=== PATIENT | female | born 1980 ===

== ENCOUNTER 2021-08-27 08:42 | Emergency (ER) | payer OTHER ==
[~2021-08-27] VITALS: Ht 149.9 cm; Wt 86.2 kg
[2021-08-27] MEDS ORDERED: FLUTICASONE PRO16 GM (10:25)
[2021-08-27] MEDS ORDERED: EUTHYROX150 MC1 (10:25)
[2021-08-27] MEDS ORDERED: ZOLOFT100 M8 (10:25)
[2021-08-27] MEDS ORDERED: Lisinopril2.5 MG (10:25)
[2021-08-27] MEDS ORDERED: MONDOXYNE NL100 MG PO (11:03)
[2021-08-27] MEDS ORDERED: Norco 5-325 Ta1 EACH PO (11:03)
== END 2021-08-27 11:14 | disposition home or self-care (01) ==
LOC: ER 08:42
DX: L02.31 Cutaneous abscess of buttock (principal); Z88.2 Allergy status to sulfonamides
CPT/HCPCS: 10060; 99282-25

== ENCOUNTER → 2024-04-10 | Outpatient (CLI) | payer OTHER ==
[~2024-04-10] MED LIST: EUTHYROX150 MC1; FLUTICASONE PRO16 GM; Lisinopril2.5 MG; MONDOXYNE NL100 MG PO; Norco 5-325 Ta1 EACH PO; Purinethol50 MG; ZOLOFT100 M8
[2024-04-14 15:50] LABS: HPV HIGH RISK BY TMA Not Detected; HPV SOURCE Cervical
== END ==
LOC: LAB SHORT 11:29 → LAB 11:29
PROVIDERS: Obstetrics & Gynecology
DX: Z01.419 Encounter for gynecological examination (general) (routine) without abnormal findings (principal)
CPT/HCPCS: 87624; G0123

== ENCOUNTER → 2024-05-01 | Outpatient (CLI) | payer OTHER | LOC: LAB SHORT 13:20 → LAB 13:20 | DX: N92.1 Excessive and frequent menstruation with irregular cycle (principal) | CPT/HCPCS: 88305 ==

== ENCOUNTER 2024-07-05 10:00 | Day surgery (SDC) | payer OTHER ==
[~2024-07-05] VITALS: Ht 149.9 cm; Wt 80.7 kg
[2024-07-05] MEDS ORDERED: Lactated Ringer's 1,000 ML IV ONE (10:48)
[2024-07-05] MEDS ORDERED: Ketorolac Tromethamine 30mg Vial ONE (12:33)
[2024-07-05] MEDS ORDERED: Ondansetron HCl 2 MG / ML 2ML Vial ONE (12:33)
[2024-07-05] MEDS ORDERED: propofoL 20 ML IV ONE (12:33)
[2024-07-05] MEDS ORDERED: FentaNYL Citrate 50 MCG/ML 2 ML Injection ONE ×2 (12:33→13:24)
[2024-07-05] MEDS ORDERED: Dexamethasone Sod Phos 10 MG/ML 1ML VIAL ONE (12:33)
[2024-07-05] MEDS ORDERED: Midazolam HCl 1MG / ML 2ML Vial ONE (12:52)
--- NOTE | 2024-07-05 13:06 | NUR ---
07/05/24 1306 Minda Green PT EMOTIONAL AND OVERWHELEMED OVER HER WAIT FOR THE PROCEDURE. PT HERE AT 1000, TO OR AT 1304. PT AROUNDED ON MULTIPLE TIMES AND UPDATED OF DELAY IN SURGICAL ROOM. PT PROVIDED WITH WARM BLANKET, AND COLD ICE PACK. IV WAS ASSED AND REPOSITIONED FOR COMFORT.
--- NOTE | 2024-07-05 13:39 | NUR ---
07/05/24 1339 Edyta Crabtree SURE: CAVITY LENGTH: 6.0CM CAVITY WIDTH: 3.4CM POWER LEVEL: 112W RF ABLATION TIME: 0:38
[2024-07-05] MEDS ORDERED: Labetalol HCL 5 MG/ML 4ML Injection (Single Dose) ONE (13:50)
--- NOTE | 2024-07-05 14:16 | NUR ---
07/05/24 1416 MEGHANN BYRD PT STATES THAT SHE DID NOT TAKE HER LISINOPRIL TODAY. SHE DOES NOT HAVE A SPECIFIC TIME THAT SHE TAKES IT. STATES THAT WHENEVER SHE REMEMBERS IT. ONCE MOVED CUFF TO RIGHT FOREARM INSTEAD OF UPPER R ARM, PER HER INSTRUCTIONS (SHE HAS EXTRA SKIN THAT MAKES HER BP ELEVATED IF DONE ON UPPER ARM), BP WAS BETTER. AT BEDSIDE. PT RESTING IN RECLINER.
[2024-07-05 14:21] VITALS: BP 183/102
== END 2024-07-05 15:02 | disposition home or self-care (01) ==
LOC: ORSCSDS 10:00
PROVIDERS: Obstetrics & Gynecology
PROC: 0U5B8ZZ Destruction of Endometrium, Via Natural or Artificial Opening Endoscopic (ICD-10-PCS; principal; 2024-07-05 11:30)
DX: N92.1 Excessive and frequent menstruation with irregular cycle (principal); I10 Essential (primary) hypertension; G47.33 Obstructive sleep apnea (adult) (pediatric); E03.9 Hypothyroidism, unspecified; E66.9 Obesity, unspecified; Z68.36 Body mass index [BMI] 36.0-36.9, adult; G40.909 Epilepsy, unspecified, not intractable, without status epilepticus; Z79.899 Other long term (current) drug therapy
CPT/HCPCS: 88305; J1100; J1885; J2250; J2405; J2704; J3010